=== PATIENT | male | born 1955 | race Caucasian/White ===

== ENCOUNTER 2018-01-03 13:07 | Emergency (ER) | payer OTHER ==
[~2018-01-03] VITALS: Ht 180.3 cm; Wt 115.7 kg
[2018-01-03 13:28] VITALS: BP 161/74
[2018-01-03] MEDS: IV NORMAL SALINE 1,000ML 1,000 ML IV ONE (13:42)
--- NOTE | 2018-01-03 13:44 | PHYS DOC ---
Past History Past Medical History: Diabetes, High Cholesterol, Hypertension, Other Past Surgical History: Gastric Bypass Alcohol Use: Occasionally Drug Use: None Adult General Chief Complaint Chief Complaint: DENTAL PROBLEM HPI HPI 62-year-old male presents with left upper quadrant dental pain. Patient has had an eroding molar for a couple of years. He usually rinses his mouth with whiskey and the pain goes away. The last couple of days the pain has not gone away. Today it is significantly worse. He has taken 14 500 mg acetaminophen tablets since 8 PM yesterday. His last dose was 1 g of Tylenol at 10:30 this morning. Patient is afraid to go to the dentist. He denies fever or chills. He has no other complaints. Review of Systems Review of Systems Constitutional: Denies fever or chills [] Eyes: Denies change in visual acuity, redness, or eye pain [] HENT: Denies nasal congestion or sore throat. Dental pain[] Respiratory: Denies cough or shortness of breath [] Cardiovascular: No additional information not addressed in HPI [] GI: Denies abdominal pain, nausea, vomiting, bloody stools or diarrhea [] : Denies dysuria or hematuria [] Musculoskeletal: Denies back pain or joint pain [] Integument: Denies rash or skin lesions [] Neurologic: Denies headache, focal weakness or sensory changes [] Endocrine: Denies polyuria or polydipsia [] All other systems were reviewed and found to be within normal limits, except as documented in this note. Current Medications Current Medications Current Medications Medications (Trade) Dose Ordered Sig/Alvino Start Time Stop Time Status Last Admin Dose Admin Sodium Chloride 1,000 ml @ 1,000 mls/hr 1X ONCE 01/03/18 13:45 01/03/18 14:44 UNV Tramadol HCl (Ultram) 50 mg 1X ONCE 01/03/18 13:45 01/03/18 13:46 UNV Allergies Allergies Allergies Coded Allergies Type Severity Reaction Last Updated Verified No Known Drug Allergies 01/03/18 No Physical Exam Physical Exam Constitutional: Well developed, well nourished, no acute distress, non-toxic appearance. [] HENT: Normocephalic, atraumatic, bilateral external ears normal, oropharynx moist, no oral exudates, nose normal. Tooth #15 is eroded to the gumline, no swelling of the gums.[] Eyes: PERRLA, EOMI, conjunctiva normal, no discharge. [] Neck: Normal range of motion, no tenderness, supple, no stridor. [] Cardiovascular:Heart rate regular rhythm, no murmur [] Lungs & Thorax: Bilateral breath sounds clear to auscultation [] Abdomen: Bowel sounds normal, soft, no tenderness, no masses, no pulsatile masses. [] Skin: Warm, dry, no erythema, no rash. [] Back: No tenderness, no CVA tenderness. [] Extremities: No tenderness, no cyanosis, no clubbing, ROM intact, no edema. [] Neurologic: Alert and oriented X 3, normal motor function, normal sensory function, no focal deficits noted. [] Psychologic: Affect normal, judgement normal, mood normal. [] Current Patient Data Vital Signs Vital Signs Date Time Temp Pulse Resp B/P (MAP) Pulse Ox O2 Delivery O2 Flow Rate FiO2 01/03/18 13:28 98.5 56 20 97 Room Air EKG EKG [] Radiology/Procedures Radiology/Procedures [] Course & Med Decision Making Course & Med Decision Making Pertinent Labs and Imaging studies reviewed. (See chart for details) The patient is afraid of needles in his mouth. He does not want a dental block, septal necessary. We will try 50 mg of tramadol first. Review of the prescription database shows no records in the last 2 years. The patient's labs are unremarkable. His acetaminophen level was less than 2. I gave him a tramadol which did not improve the patient's pain. Given his acetaminophen level being normal, I gave him a Paradise 5/325. This did adequately control his pain. I will discharge him a short course of Paradise 5/325. He will follow-up with a dentist or oral surgeon. [] Dragon Disclaimer Dragon Disclaimer This electronic medical record was generated, in whole or in part, using a voice recognition dictation system. Departure Departure: Referrals: SALLIE DOWELL MD (PCP) Scripts Hydrocodone Bit/Acetaminophen (NORCO 5-325 TABLET) 1 Each Tablet 1 TAB PO PRN Q6HRS PRN for PAIN, #14 TAB 0 Refills Prov: SERGIO DRAPER DO 01/03/18 SERGIO DRAPER DO Jan 03, 2018 13:44
[2018-01-03] MEDS: traMADol 50 MG TABLET PO ONE (13:46)
[2018-01-03 14:21] LABS: BASO # 0.1 x10^3/uL (0.0-0.2); BASO % 1 % (0-3); EOS % 0 % (0-3); HEMATOCRIT 35.8 % (39.0-53.0); HEMOGLOBIN 11.8 g/dL (13.0-17.5); LYMPH # 2.8 x10^3/uL (1.0-4.8); LYMPH % 28 % (24-48); MEAN CORPUSCULAR HEMOGLOBIN 28 pg (25-35); MEAN CORPUSCULAR HGB CONC 33 g/dL (31-37); MEAN CORPUSCULAR VOLUME 86 fL (79-100); MONO # 0.6 x10^3/uL (0.0-1.1); MONO % 6 % (0-9); NEUT # 6.7 x10^3uL (1.8-7.7); NEUT % 66 % (31-73); PLATELET COUNT 298 x10^3/uL (140-400); RED BLOOD COUNT 4.18 x10^6/uL (4.30-5.70); RED CELL DISTRIBUTION WIDTH 14.2 % (11.5-14.5); WHITE BLOOD COUNT 10.3 x10^3/uL (4.0-11.0)
[2018-01-03 14:26] LABS: ALBUMIN 3.8 g/dL (3.4-5.0); ALBUMIN/GLOBULIN RATIO 1.1 (1.0-1.7); CALCIUM 8.9 mg/dL (8.5-10.1); GFR 75.5; POTASSIUM 3.8 mmol/L (3.5-5.1); TOTAL BILIRUBIN 0.2 mg/dL (0.2-1.0); TOTAL PROTEIN 7.3 g/dL (6.4-8.2)
[2018-01-03 14:27] LABS: ACETAMIN < 2.0 mcg/mL (10-30)
[2018-01-03] MEDS: HYDROcodone/APAP 5/325MG 1 TAB TABLET PO ONE (15:07)
[2018-01-03] MEDS ORDERED: HYDR-971 PO (16:26)
== END 2018-01-03 16:40 | disposition home or self-care (01) ==
LOC: ER 13:07
DX: K08.89 Other specified disorders of teeth and supporting structures (principal); R74.0 Nonspecific elevation of levels of transaminase and lactic acid dehydrogenase [LDH]; E11.9 Type 2 diabetes mellitus without complications; E78.00 Pure hypercholesterolemia, unspecified; I10 Essential (primary) hypertension; Z98.84 Bariatric surgery status
CPT/HCPCS: 36415; 80053; 85025; 99284; G6039; 82003; J7030